=== PATIENT | female | born 1940 | race Caucasian/White ===

== ENCOUNTER → 2018-09-19 | Outpatient (CLI) | payer MEDICARE, BC ==
[~2018-09-19] MED LIST: ATRV10T; ESCI20TA2 PO; HCT25T; IBAN150T5; IRB150T; MTF500T PO; NFNEB10T PO; OMEG1CAP26 PO; RSG4T
--- NOTE | 2018-09-19 12:34 | Diagnostic Imaging Report ---
INDICATION: Postmenopausal screening for osteoporosis. COMPARISON: 04/13/2013. FINDINGS: AP Spine L1-L4: [BMD (g/cm2): 1.059] [T-Score: -1.2] [Z-Score: 0.0] [BMD Previous: 0.916] [BMD % Change: 15.6] LT Hip Neck: [BMD (g/cm2): 0.830] [T-Score: -1.5] [Z-Score: 0.2] LT Hip Total: [BMD (g/cm2):1.009] [T-Score:0.0] [Z-Score: 1.5] [BMD Previous: 1.001] [BMD % Change: N/A] RT Hip Neck: [BMD (g/cm2):0.919] [T-Score:-0.9] [Z-Score:0.9] RT Hip Total: [BMD (g/cm2):0.955] [T-score:-0.4] [Z-Score:1.1] [BMD Previous:0.962] [BMD % Change:N/A] *Indicates significant change from prior examination based on 95% confidence level. World Health Organization criteria for BMD interpretation classify patients as Normal (T-score at or above -1.0), Osteopenic (T-score between -1.0 and -2.5) or Osteoporotic (T-score at or below -2.5). LIMITATIONS AND MODIFICATION: None. FRACTURE RISK (FRAX SCORE): The ten year probability of (%): Major Osteoporotic Fracture: [N/A] Hip Fracture: [N/A] IMPRESSION: 1. Osteopenia (Low bone mass). 2. No significant change in bone mineral density since prior examination. 3. See below National Osteoporosis Foundation guidelines on when to potentially initiate pharmacologic therapy. Based on the National Osteoporosis Foundation Guidelines, pharmacologic treatment should be initiated in any of the following, unless clinical conditions suggest otherwise: * Any patient with prior fragility fracture of the hip or vertebrae. A spine fracture indicates 5X risk for subsequent spine fracture and 2X risk for subsequent hip fracture. * Osteoporosis (T-score <-2.5). * Postmenopausal women and men age 50 and older with low bone mass/osteopenia (T-score between -1.0 and -2.5) by DXA and 10-year major osteoporotic fracture greater than 20% or a 10-year probability of hip fracture greater than 3%. These fracture risks are supplied above in the FRAX score, if applicable. * Clinician judgment and/or patient preferences may indicate treatment for people with 10-year fracture probabilities above or below these levels. Dictated by: Dictated on workstation # [id number]
== END ==
LOC: RAD 10:39
PROVIDERS: ATTEND Internal Medicine
DX: Z13.820 Encounter for screening for osteoporosis (principal); M85.89 Other specified disorders of bone density and structure, multiple sites; Z78.0 Asymptomatic menopausal state
CPT/HCPCS: 77080

== ENCOUNTER 2019-01-29 19:58 | Outpatient (CLI) | payer MEDICARE, BC | END 2019-01-30 07:30 | disposition home or self-care (01) | LOC: SLEEP 19:58 | PROVIDERS: ATTEND Nurse Practitioner Family | DX: G47.10 Hypersomnia, unspecified (principal); I10 Essential (primary) hypertension | CPT/HCPCS: 95810 ==

== ENCOUNTER → 2019-08-08 | Outpatient (CLI) | payer MEDICARE, BC ==
--- NOTE | 2019-08-08 11:55 | Diagnostic Imaging Report ---
PROCEDURE: US Renal Bilateral. TECHNIQUE: Multiple real-time grayscale images were obtained over the kidneys in various projections bilaterally. INDICATION: Chronic kidney disease, stage IV. FINDINGS: The right kidney measures 10.4 x 5.0 x 4.8 cm, and the left kidney measures 11.2 x 4.6 x 6.4 cm. Cortical thickness and echogenicity are unremarkable. There are two small cysts in the right kidney cortex, largest 15 mm in size. There is a large calcific density in the lower pole of the left kidney measuring up to 3.5 cm. No hydronephrosis is identified. Bladder is unremarkable. Bilateral ureteral jets were visualized. IMPRESSION: Right renal cysts and large left renal calculus. No hydronephrosis is detected. Dictated by: Dictated on workstation # [id number]
== END ==
LOC: RAD 10:04
PROVIDERS: ATTEND Internal Medicine Nephrology
DX: I12.9 Hypertensive chronic kidney disease with stage 1 through stage 4 chronic kidney disease, or unspecified chronic kidney disease (principal); N18.4 Chronic kidney disease, stage 4 (severe); R60.0 Localized edema; I63.9 Cerebral infarction, unspecified; N28.1 Cyst of kidney, acquired; N20.0 Calculus of kidney
CPT/HCPCS: 76770

== ENCOUNTER 2020-10-07 10:13 | Emergency (ER) | payer MEDICARE, BC ==
[~2020-10-07] VITALS: Ht 165.1 cm; Wt 95.7 kg
--- NOTE | 2020-10-07 10:29 | ED General ---
General Stated Complaint: HIGH BP (200+/123) Source of Information: Patient Exam Limitations: No Limitations History of Present Illness Date Seen by Provider: Oct 07, 2020 Time Seen by Provider: 10:20 Initial Comments 80-year-old female presents with concern of elevated blood pressure by home blood pressure monitor this morning. Her drove her in after calling their primary care provider with this information and they were advised to come to the ER. She does complain of some weakness after eating breakfast this morning, denies chest pain cough or shortness of air. Denies swelling of extremities, recent illness, fever or chills, nausea vomiting or loss of appetite. States she did take her morning medications, but doesn't know what they were, says her knows her medications. Saw, PCP, Dr Steen yesterday and her blood pressure medication was increased (Diltiazem). Took increased dose this morning. Reviewed medications, only taking diltiazem for HTN. Used to take an ARB. Allergies and Home Medications Allergies Coded Allergies: Sulfa(Sulfonamide Antibiotics) (Unverified Allergy, Unknown, 03/26/09) Home Medications Chlorthalidone 25 Mg Tablet, 25 MG PO DAILY Prescribed by: ADRIANNA CHERRY on 10/07/20 1139 Escitalopram Oxalate 20 Mg Tablet, 1 EACH PO DAILY, (Reported) Metformin Hcl 500 Mg Tablet, 1 EACH PO BID, (Reported) Nebivolol Hcl 10 Mg Tablet, 1 EACH PO DAILY, (Reported) [place]-3/Dha/Epa/Fish Oil 1 Each Capsule, 1 EACH PO DAILY, (Reported) Patient Home Medication List Home Medication List Reviewed: Yes Review of Systems Review of Systems Constitutional: No chills, No dizziness, No fever, No malaise; weakness EENTM: no symptoms reported Respiratory: No cough, No short of breath Cardiovascular: No chest pain, No edema, No palpitations, No syncope, No vascular heart diseas Gastrointestinal: No abdominal pain, No diarrhea, No loss of appetite, No nausea, No vomiting Musculoskeletal: No back pain, No joint pain Skin: No change in color, No rash Psychiatric/Neurological: Denies Headache, Denies Numbness, Denies Seizure, Denies Tingling, Denies Tremors; Weakness Past Fjighir-Owaysj-Cddskl Hx Past Med/Social Hx: Reviewed Nursing Past Med/Soc Hx Patient Social History Alcohol Use: Denies Use Past Medical History Reproductive Disorders: No Physical Exam Vital Signs Vital Signs - First Documented 10/07/20 10:17 Temp 36.8 Pulse 84 Resp 20 B/P (MAP) 233/69 (123) Pulse Ox 96 O2 Delivery Room Air Capillary Refill : Height, Weight, BMI Height: '" Weight: lbs. oz. kg; BMI Method: General Appearance: No Apparent Distress, WD/WN Eyes: Bilateral Eye Normal Inspection, Bilateral Eye PERRL, Bilateral Eye EOMI HEENT: PERRL/EOMI, Normal ENT Inspection Neck: Normal Inspection, Non Tender, Supple Respiratory: Chest Non Tender, Lungs Clear, Normal Breath Sounds, No Accessory Muscle Use, No Respiratory Distress Cardiovascular: Regular Rate, Rhythm, No Edema, No JVD, Normal Peripheral Pulses Gastrointestinal: No Organomegaly, No Pulsatile Mass, Non Tender, Soft Back: Normal Inspection, No CVA Tenderness Extremity: Normal Capillary Refill, Non Tender, No Calf Tenderness Neurologic/Psychiatric: Alert, Oriented x3, No Motor/Sensory Deficits, Normal Mood/Affect Skin: Normal Color, Warm/Dry Progress/Results/Core Measures Suspected Sepsis SIRS Temperature: Pulse: Respiratory Rate: Laboratory Tests 10/07/20 10:30: White Blood Count 10.0 Blood Pressure / Mean: Laboratory Tests 10/07/20 10:30: Creatinine 1.49H, Platelet Count 246, Total Bilirubin 0.5 Results/Orders Lab Results Laboratory Tests Test 10/07/20 10:30 Range/Units White Blood Count 10.0 4.3-11.0 10^3/uL Red Blood Count 3.96 L 4.35-5.85 10^6/uL Hemoglobin 11.9 11.5-16.0 G/DL Hematocrit 37 35-52 % Mean Corpuscular Volume 92 80-99 FL Mean Corpuscular Hemoglobin 30 25-34 PG Mean Corpuscular Hemoglobin Concent 33 32-36 G/DL Red Cell Distribution Width 13.5 10.0-14.5 % Platelet Count 246 130-400 10^3/uL Mean Platelet Volume 10.3 7.4-10.4 FL Immature Granulocyte % (Auto) 1 % Neutrophils (%) (Auto) 78 H 42-75 % Lymphocytes (%) (Auto) 16 12-44 % Monocytes (%) (Auto) 5 0-12 % Eosinophils (%) (Auto) 0 0-10 % Basophils (%) (Auto) 1 0-10 % Neutrophils # (Auto) 7.7 1.8-7.8 X 10^3 Lymphocytes # (Auto) 1.6 1.0-4.0 X 10^3 Monocytes # (Auto) 0.5 0.0-1.0 X 10^3 Eosinophils # (Auto) 0.0 0.0-0.3 10^3/uL Basophils # (Auto) 0.1 0.0-0.1 10^3/uL Immature Granulocyte # (Auto) 0.1 0.0-0.1 10^3/uL Sodium Level 140 135-145 MMOL/L Potassium Level 4.2 3.6-5.0 MMOL/L Chloride Level 103 98-107 MMOL/L Carbon Dioxide Level 24 21-32 MMOL/L Anion Gap 13 5-14 MMOL/L Blood Urea Nitrogen 39 H 7-18 MG/DL Creatinine 1.49 H 0.60-1.30 MG/DL Estimat Glomerular Filtration Rate 34 BUN/Creatinine Ratio 26 Glucose Level 221 H 70-105 MG/DL Calcium Level 9.7 8.5-10.1 MG/DL Corrected Calcium 9.6 8.5-10.1 MG/DL Total Bilirubin 0.5 0.1-1.0 MG/DL Aspartate Amino Transf (AST/SGOT) 24 5-34 U/L Alanine Aminotransferase (ALT/SGPT) 18 0-55 U/L Alkaline Phosphatase 66 40-136 U/L Troponin I < 0.30 <0.30 NG/ML Total Protein 7.3 6.4-8.2 GM/DL Albumin 4.1 3.2-4.5 GM/DL My Orders Orders - JULIANNESTADRIANNA BLANTON DO Ed Iv/Invasive Line Start (10/07/20 10:24) Cbc With Automated Diff (10/07/20 10:24) Comprehensive Metabolic Panel (10/07/20 10:24) Troponin I Fs (10/07/20 10:24) Chest 1 View Ap/Pa Only (10/07/20 10:24) Ekg Tracing (10/07/20 10:24) Vital Signs/I&O 10/07/20 10:17 Temp 36.8 Pulse 84 Resp 20 B/P (MAP) 233/69 (123) Pulse Ox 96 O2 Delivery Room Air Capillary Refill : Progress Note : Progress Note 1130- Called Dr. Steen to discuss patient's presentation, labs, EKG and blood pressure. We agreed to start chlorthalidone 25 mg daily, starting today and he will see patient in the office in 1 week. Discussed this with patient's who is her primary caregiver he agrees and understands as well. Patient stable, no distress no significant change of her creatinine or other lab abnormality. Otherwise asymptomatic. ECG Initial ECG Impression Date: Oct 07, 2020 Initial ECG Impression Time: 10:35 Initial ECG Rate: 70 Initial ECG Rhythm: Normal Sinus Initial ECG Intervals: Normal Initial ECG Impression: Normal Initial ECG Comparisson: No Previous ECG Available Departure Impression Primary Impression: Uncontrolled hypertension Disposition: HOME, SELF-CARE Condition: Stable Departure-Patient Inst. Decision time for Depature: 11:38 Referrals: CYNDIE STEEN MD (PCP/Family) Primary Care Physician Patient Instructions: High Blood Pressure (DC) Add. Discharge Instructions: follow up with Dr Steen next week regarding your blood pressure Scripts Chlorthalidone (Chlorthalidone) 25 Mg Tablet 25 MG PO DAILY, #30 TAB Prov: ADRIANNA CHERRY DO 10/07/20 ADRIANNA CHERRY DO Oct 07, 2020 10:29
[2020-10-07 10:43] LABS: HEMATOCRIT 37 % (35-52); HEMOGLOBIN 11.9 G/DL (11.5-16.0); MEAN CORPUSCULAR HEMOGLOBIN 30 PG (25-34); MEAN CORPUSCULAR HGB CONC 33 G/DL (32-36); MEAN CORPUSCULAR VOLUME 92 FL (80-99); MEAN PLATELET VOLUME 10.3 FL (7.4-10.4); PLATELET COUNT 246 10^3/uL (130-400)
[2020-10-07 10:44] LABS: BASOPHILS # (AUTO) 0.1 10^3/uL (0.0-0.1); BASOPHILS % (AUTO) 1 % (0-10); EOSINOPHILS % (AUTO) 0 % (0-10); LYMPHOCYTES # (AUTO) 1.6 X 10^3 (1.0-4.0); LYMPHOCYTES % (AUTO) 16 % (12-44); MONOCYTES # (AUTO) 0.5 X 10^3 (0.0-1.0); MONOCYTES % (AUTO) 5 % (0-12); NEUTROPHILS # (AUTO) 7.7 X 10^3 (1.8-7.8); NEUTROPHILS % (AUTO) 78 % (42-75)
--- NOTE | 2020-10-07 10:54 | Diagnostic Imaging Report ---
INDICATION: Uncontrolled hypertension. TECHNIQUE: Single view chest at 10:30 AM. CORRELATION STUDY: 11/14/2012. FINDINGS: Heart size is enlarged. Calcification of the aortic arch. Pulmonary vasculature overall within normal limits. Likely chronic appearing changes about the lung parenchyma. Scattered calcified granulomas. No infiltrate. IMPRESSION: Negative for acute abnormality of the chest. Dictated by: Dictated on workstation # [id number]
[2020-10-07 11:25] LABS: ALANINE AMINOTRANSFERASE 18 U/L (0-55); ALKALINE PHOSPHATASE 66 U/L (40-136); BILIRUBIN,TOTAL 0.5 MG/DL (0.1-1.0); BUN/CREATININE RATIO 26; CALCIUM 9.7 MG/DL (8.5-10.1); CARBON DIOXIDE 24 MMOL/L (21-32); CHLORIDE 103 MMOL/L (98-107); CREATININE SERUM 1.49 MG/DL (0.60-1.30); GFR ESTIMATED 34; GLUCOSE 221 MG/DL (70-105); POTASSIUM 4.2 MMOL/L (3.6-5.0); SODIUM 140 MMOL/L (135-145); TOTAL PROTEIN 7.3 GM/DL (6.4-8.2)
[2020-10-07 11:26] LABS: ALBUMIN 4.1 GM/DL (3.2-4.5)
[2020-10-07] MEDS ORDERED: CHLO25TA22 PO (11:39)
[2020-10-07 11:43] VITALS: BP 213/61
[2020-10-07] MEDS ORDERED: CLOP75TA28 PO (12:46)
[2020-10-07] MEDS ORDERED: MULT-1029 PO (12:46)
[2020-10-07] MEDS ORDERED: ESCI-2 PO (12:46)
[2020-10-07] MEDS ORDERED: ATOR40TA70 PO (12:46)
[2020-10-07] MEDS ORDERED: PRED5TAB PO (12:46)
[2020-10-07] MEDS ORDERED: RIVA1PAT12 TD (12:46)
[2020-10-07] MEDS ORDERED: DILT180C48 PO (12:46)
== END 2020-10-07 11:43 | disposition home or self-care (01) ==
LOC: EDUNIT# 10:13 → ER FS 10:15
DX: I10 Essential (primary) hypertension (principal); Z79.84 Long term (current) use of oral hypoglycemic drugs; Z88.2 Allergy status to sulfonamides; Z79.899 Other long term (current) drug therapy
CPT/HCPCS: 36415; 71045; 80053; 84484; 85025; 93005

== ENCOUNTER 2021-07-18 18:39 | Emergency (ER) | payer MEDICARE, BC ==
[~2021-07-18] VITALS: Ht 165 cm; Wt 93.0 kg
[~2021-07-18 18:39] MED LIST changes: +ATOR40TA70 PO; +CHLO25TA22 PO; +CLOP75TA28 PO; +DILT180C48 PO; +ESCI-2 PO; +MULT-1029 PO; +PRED5TAB PO; +RIVA1PAT12 TD
[2021-07-18] MEDS ORDERED: NS IV 1000 ML 1,000 ML IV STA (18:55)
[2021-07-18 19:00] LABS: WHITE BLOOD COUNT 9.2 10^3/uL (4.3-11.0)
[2021-07-18 19:02] LABS: BASOPHILS % (AUTO) 0 % (0-10); EOSINOPHILS % (AUTO) 0 % (0-10); HEMATOCRIT 34 % (35-52); LYMPHOCYTES # (AUTO) 1.3 X 10^3 (1.0-4.0); LYMPHOCYTES % (AUTO) 14 % (12-44); MEAN CORPUSCULAR HEMOGLOBIN 30 pg (25-34); MEAN CORPUSCULAR HGB CONC 33 g/dL (32-36); MEAN CORPUSCULAR VOLUME 92 fL (80-99); MONOCYTES # (AUTO) 0.7 X 10^3 (0.0-1.0); MONOCYTES % (AUTO) 8 % (0-12); NEUTROPHILS # (AUTO) 7.2 X 10^3 (1.8-7.8); NEUTROPHILS % (AUTO) 78 % (42-75); PLATELET COUNT 258 10^3/uL (130-400)
--- NOTE | 2021-07-18 19:03 | ED General ---
General Chief Complaint: General Problems/Pain Stated Complaint: ANXIETY Source of Information: Patient, Family History of Present Illness Date Seen by Provider: Jul 18, 2021 Time Seen by Provider: 18:41 Initial Comments 81-year-old female brought in by family due to concerns that she has been more lethargic this week. She has not been wanting to eat or drink as much. She has a history of prior stroke in 2016 and has panic attacks since then. She takes alprazolam when she has panic attacks but states she is not anxious or nervous right now. The family member with her stated that they gave her a dose of the medicine approximately an hour before arrival. Patient denies any complaints and just states that she feels tired. She has no nausea, vomiting, headache, dysuria, abdominal pain, chest pain, headache, numbness or weakness in her arms or legs. She states she feels a little unsteady when she is walking. However this is after she had been giving the dose of Xanax. Timing/Duration: 1 Week Severity: Moderate Modifying Factors: worse with Medication (more fatigued and unsteady walking after taking Alprazolam) Associated Systoms: No Chest Pain, No Cough, No Diaphoresis, No Fever/Chills, No Headaches; Loss of Appetite (not eating as much as usual); No Malaise, No Nausea/Vomiting, No Rash, No Seizure, No Shortness of Air, No Syncope; Weakness (generalized) Allergies and Home Medications Allergies Coded Allergies: Sulfa(Sulfonamide Antibiotics) (Unverified Allergy, Unknown, 03/26/09) Patient Home Medication List Home Medication List Reviewed: Yes Atorvastatin Calcium (Atorvastatin Calcium) 40 Mg Tablet, 40 MG PO HS, (Reported) Entered as Reported by: NGOC WEST on 10/07/20 1246 Chlorthalidone (Chlorthalidone) 25 Mg Tablet, 25 MG PO DAILY Prescribed by: ADRIANNA CHERRY on 10/07/20 1139 Clopidogrel Bisulfate (Clopidogrel) 75 Mg Tablet, 75 MG PO DAILY, (Reported) Entered as Reported by: NGOC WEST on 10/07/20 1246 Diltiazem HCl (Dilt-Xr) 180 Mg Cap.er.deg, 180 MG PO DAILY, (Reported) Entered as Reported by: NGOC WEST on 10/07/20 1246 Escitalopram Oxalate (Escitalopram Oxalate) 10 Mg Tablet, 10 MG PO HS, (Reported) Entered as Reported by: NGOC WEST on 10/07/20 124 Multivit-Min/FA/Lycopene/Lut (Centrum Silver Tablet) 1 Each Tablet, 1 EACH PO DAILY, (Reported) Entered as Reported by: NGOC WEST on 10/07/20 124 Nitrofurantoin Monohyd/M-Cryst (Macrobid 100 mg Capsule) 100 Mg Capsule, 1 TAB PO BID Prescribed by: XUAN MICHEL on 07/18/211956 [place]-3/Dha/Epa/Fish Oil (Fish Oil 1,000 Mg Softgel) 1 Each Capsule, 1 EACH PO BID, (Reported) Entered as Reported by: LYNDSAY STANLEY on 11/06/12 153 Prednisone (Prednisone) 5 Mg Tablet, 5 MG PO DAILY, (Reported) Entered as Reported by: NGOC WEST on 10/07/20 124 Rivastigmine (Rivastigmine) 1 Each Patch.td24, 1 PATCH TD DAILY, (Reported) Entered as Reported by: NGOC WEST on 10/07/20 124 Review of Systems Review of Systems Constitutional: No chills, No diaphoresis, No fever EENTM: no symptoms reported Respiratory: no symptoms reported; No cough, No short of breath Cardiovascular: No chest pain, No palpitations Gastrointestinal: No abdominal pain, No nausea, No vomiting Genitourinary: No dysuria, No frequency Musculoskeletal: No back pain, No neck pain Skin: No rash Psychiatric/Neurological: Anxiety (reported anxiety and panic attacks); Denies Headache, Denies Numbness, Denies Paresthesia; Weakness (generalized) Hematologic/Lymphatic: Denies Blood Clots Past Sbrsvsu-Dlgyow-Udltof Hx Patient Social History Tobacco Use?: No Use of E-Cig and/or Vaping dev: No Substance use?: No Alcohol Use?: No Seasonal Allergies Seasonal Allergies: No Past Medical History Surgery/Hospitalization HX: Hx of strokes, Panic Attacks, Hypertension Surgeries: Yes (BREAST BIOPSY, 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 19) Hysterectomy Respiratory: Yes (Hypersomnia, no ANISH on last sleep study) Cardiac: Yes (CKD severe stage 4) High Cholesterol, Hypertension, Valvular Heart Disease Neurological: Yes (Stroke deficits: vision impaired and memory) Parkinson's Disease, Stroke Reproductive Disorders: No Genitourinary: Yes (CKD severe Stage 4) Kidney Stones, Renal Failure Gastrointestinal: No Musculoskeletal: No Endocrine: Yes Diabetes, Non-Insulin dep HEENT: Yes (Repaired cataracts per old records) Cataract Psychosocial: Yes ("Panic Attacks") Anxiety Integumentary: No Blood Disorders: No Physical Exam Vital Signs Vital Signs - First Documented 07/18/21 18:55 Temp 36.7 Pulse 77 Resp 20 B/P (MAP) 166/66 (99) Pulse Ox 98 O2 Delivery Room Air Capillary Refill : Height, Weight, BMI Height: '" Weight: lbs. oz. kg; 35.00 BMI Method: General Appearance: No Apparent Distress, WD/WN Eyes: Bilateral Eye PERRL, Bilateral Eye EOMI HEENT: Pharynx Normal Neck: Full Range of Motion, Normal Inspection, Non Tender, Supple Respiratory: Chest Non Tender, Lungs Clear, Normal Breath Sounds, No Accessory Muscle Use, No Respiratory Distress Cardiovascular: Regular Rate, Rhythm, Normal Peripheral Pulses Gastrointestinal: Normal Bowel Sounds, No Pulsatile Mass, Non Tender, Soft Rectal: Deferred Extremity: Normal Capillary Refill, Normal Inspection, No Pedal Edema Neurologic/Psychiatric: Alert, Oriented x3, No Motor/Sensory Deficits, print producer II- XII Norm as Tested; No Facial Droop, No Motor Weakness; Other (equal malt loader strength) Skin: Normal Color, Warm/Dry Progress/Results/Core Measures Suspected Sepsis SIRS Temperature: Pulse: Respiratory Rate: Laboratory Tests 07/18/21 18:55: White Blood Count 9.2 Blood Pressure / Mean: Laboratory Tests 07/18/21 18:55: Creatinine 2.01H, INR Comment 0.9, Platelet Count 258, Total Bilirubin 0.2 Results/Orders Lab Results Laboratory Tests Test 07/18/21 18:54 07/18/21 18:55 07/18/21 19:30 Range/Units Glucometer 164 H 70-110 MG/DL White Blood Count 9.2 4.3-11.0 10^3/uL Red Blood Count 3.66 L 3.80-5.11 10^6/uL Hemoglobin 11.0 L 11.5-16.0 g/dL Hematocrit 34 L 35-52 % Mean Corpuscular Volume 92 80-99 fL Mean Corpuscular Hemoglobin 30 25-34 pg Mean Corpuscular Hemoglobin Concent 33 32-36 g/dL Red Cell Distribution Width 13.8 10.0-14.5 % Platelet Count 258 130-400 10^3/uL Mean Platelet Volume 10.0 9.0-12.2 fL Immature Granulocyte % (Auto) 0 % Neutrophils (%) (Auto) 78 H 42-75 % Lymphocytes (%) (Auto) 14 12-44 % Monocytes (%) (Auto) 8 0-12 % Eosinophils (%) (Auto) 0 0-10 % Basophils (%) (Auto) 0 0-10 % Neutrophils # (Auto) 7.2 1.8-7.8 X 10^3 Lymphocytes # (Auto) 1.3 1.0-4.0 X 10^3 Monocytes # (Auto) 0.7 0.0-1.0 X 10^3 Eosinophils # (Auto) 0.0 0.0-0.3 10^3/uL Basophils # (Auto) 0.0 0.0-0.1 10^3/uL Immature Granulocyte # (Auto) 0.0 0.0-0.1 10^3/uL Prothrombin Time 12.6 12.2-14.7 SEC INR Comment 0.9 0.8-1.4 Activated Partial Thromboplast Time 24 24-35 SEC Sodium Level 138 135-145 MMOL/L Potassium Level 5.0 3.6-5.0 MMOL/L Chloride Level 102 98-107 MMOL/L Carbon Dioxide Level 23 21-32 MMOL/L Anion Gap 13 5-14 MMOL/L Blood Urea Nitrogen 67 H 7-18 MG/DL Creatinine 2.01 H 0.60-1.30 MG/DL Estimat Glomerular Filtration Rate 24 BUN/Creatinine Ratio 33 Glucose Level 173 H 70-105 MG/DL Calcium Level 9.9 8.5-10.1 MG/DL Corrected Calcium 10.0 8.5-10.1 MG/DL Magnesium Level 1.7 1.6-2.4 MG/DL Total Bilirubin 0.2 0.1-1.0 MG/DL Aspartate Amino Transf (AST/SGOT) 18 5-34 U/L Alanine Aminotransferase (ALT/SGPT) 15 0-55 U/L Alkaline Phosphatase 81 40-136 U/L Troponin I < 0.30 <0.30 NG/ML Pro-B-Type Natriuretic Peptide 357.9 H <75.0 PG/ML Total Protein 7.5 6.4-8.2 GM/DL Albumin 3.9 3.2-4.5 GM/DL Lipase 52 8-78 U/L Urine Color YELLOW Urine Clarity SLIGHTLY CLOUDY Urine pH 5.5 5-9 Urine Specific [place] 1.020 1.016-1.022 Urine Protein TRACE H NEGATIVE Urine Glucose (UA) NEGATIVE NEGATIVE Urine Ketones NEGATIVE NEGATIVE Urine Nitrite NEGATIVE NEGATIVE Urine Bilirubin NEGATIVE NEGATIVE Urine Urobilinogen 0.2 < = 1.0 MG/DL Urine Leukocyte Esterase 2+ H NEGATIVE Urine RBC (Auto) TRACE-I H NEGATIVE Urine RBC NONE /HPF Urine WBC 25-50 H /HPF Urine Squamous Epithelial Cells 2-5 /HPF Urine Crystals NONE /LPF Urine Bacteria FEW H /HPF Urine Casts NONE /LPF Urine Mucus MODERATE H /LPF Urine Culture Indicated YES My Orders Orders - XUAN MICHEL MD Cbc With Automated Diff (07/18/21 18:53) Magnesium (07/18/21 18:53) Ekg Tracing (07/18/21 18:53) Comprehensive Metabolic Panel (07/18/21 18:53) Protime With Inr (07/18/21 18:53) Partial Thromboplastin Time (07/18/21 18:53) Monitor-Rhythm Ecg Trace Only (07/18/21 18:53) Ed Iv/Invasive Line Start (07/18/21 18:53) Lipase (07/18/21 18:53) Troponin I Fs (07/18/21 18:53) Probnp Fs (07/18/21 18:53) Ua Culture If Indicated (07/18/21 18:53) Accucheck Stat ONCE (07/18/21 18:53) Ct Head Wo (07/18/21 18:53) Ns Iv 1000 Ml (Sodium Chloride 0.9%) (07/18/21 18:55) Urine Culture (07/18/21 19:30) Rx-Nitrofurantoin [place] (Rx-Macrobid) (07/18/21 21:00) Ceftriaxone (Rocephin) (07/18/21 19:57) Vital Signs/I&O 07/18/21 07/18/21 18:55 20:20 Temp 36.7 Pulse 77 70 Resp 20 15 B/P (MAP) 166/66 (99) 170/71 Pulse Ox 98 97 O2 Delivery Room Air Room Air Capillary Refill : Progress Note #1: Progress Note Since the patient has no complaints and the family member is vague about what they were concerned about for the patient will obtain general testing to look for electrolyte imbalance, acute bleeding or stroke, UTI, dehydration, myocardial infarction. Give IVF for hydration. Accucheck came back as 162. Progress Note #2: Progress Note Labs show chronic stable anemia with hemoglobin of 11.0. Her chemistry panel does not show acute electrolyte imbalance or hepatic abnormality. Her renal function is slightly elevated with an elevated BUN of 67 and creatinine of 2.01. This would go along with some dehydration as they are slightly higher than the values from September 2020 when Cr was 1.49. Her CT scan of the head did not demonstrate any acute for signs of bleeding or stroke. She was able to provide a urine specimen so awaiting that test. Progress Note #3: Progress Note Urine does show signs of infection so we will treat with antibiotics for that. When reviewing results with the he did state that she has not taken her nighttime dose of meds yet which would also help explain her blood pressure being elevated. Stressed importance of drinking more fluids and staying better hydrated. She was already having improved symptoms of dizziness and difficulty walking with getting hydration here in the ED. Give a dose of Rocephin to start treatment for the urine infection and sent with a take-home pack of Macrobid. Prescription was sent to [facility] to be able to burr picker on Tuesday morning since currently the [facility] pharmacy in [place] is not available on Sundays. Counseled on follow-up and return precautions. ECG Initial ECG Impression Date: Jul 18, 2021 Initial ECG Impression Time: 18:56 Initial ECG Rate: 63 Initial ECG Rhythm: Normal Sinus Initial ECG Comparisson: No Previous ECG Available Comment Normal sinus rhythm with a heart rate of 63 bpm. TX interval of [address] elevation. Abnormal R wave progression with early transition. QT interval 423 ms with a QTC 434 ms. No prior tracing available for comparison. Diagnostic Imaging Diagonstic Imaging: CT Plain Films/CT/US/NM/MRI: head Comments [facility] [place], [place] NAME: [facility] REC#: [id number] PT STATUS: REG ER : 10/04/1995 PHYSICIAN: XUAN MICHEL MD ADMIT DATE: 07/18/21/ER FS Draft Date of Exam:07/18/21 CT HEAD/SINUSES WO PROCEDURE: CT head without contrast and CT sinuses with contrast. TECHNIQUE: Routine noncontrast CT images were obtained through the head and sinuses. Coronal reformats of the sinuses were also performed and reviewed. Auto Exposure Controls were utilized during the CT exam to meet ALARA standards for radiation dose reduction. DATE: July 18, 2021. INDICATION: 25-year-old female, headache, dizziness, sinus pressure. COMPARISON: None. FINDINGS: The bilateral frontal sinuses are well-aerated. There is nonspecific opacification in the left posterior ethmoidal air cell. There is mucosal thickening of the left sphenoid sinus. The right sphenoid sinus and right ethmoidal air cells are well aerated. Maxillary sinuses are well aerated. There is no air-fluid level in the paranasal sinuses or bubbly areas of internal lucency. The bony nasal septum is deviated to the right of midline. Mastoid air cells and middle ears are well-aerated, bilaterally. There is pneumatization of the petrous apices. The ventricles and additional CSF spaces are normal in size and configuration for patient age. There is no identified abnormal extra-axial fluid collection. There is no evidence of acute intracranial hemorrhage. There is no mass effect or midline shift. IMPRESSION: 1. Nonspecific opacification in the left posterior ethmoid cell with mucosal thickening in the left sphenoid sinus. No findings to specifically suggest acute sinusitis although correlation clinically is recommended. 2. No identified acute intracranial abnormality. Dictated on workstation # [id number] Dict: 07/18/211908 Trans: 07/18/211924 [facility] [id number] Interpreted by: QUINTON HU MD Electronically signed by: Reviewed: Reviewed by Me Departure Impression Primary Impression: Cystitis without hematuria Additional Impressions: Dehydration Fatigue Qualified Codes: R53.82 - Chronic fatigue, unspecified Disposition: 01 HOME, SELF-CARE Condition: Stable Departure-Patient Inst. Decision time for Depature: 20:12 Referrals: CYNDIE QUIGLEY MD (PCP/Family) Primary Care Physician Patient Instructions: Fatigue ED, Dehydration, Adult ED, Urinary Tract Infection, Adult ED Add. Discharge Instructions: Your CT scan of the head did not show any signs of new stroke or bleeding. Your urine showed signs of a UTI or bladder infection. Drinking more water will help to flush out the infection. Take the full course of antibiotics to treat for infection. Your labs show that you do need to drink more water and stay better hydrated. Your glucose or sugar level was slightly elevated at 164 so you may want to check with Dr. Quigley to see if he wants to do anything different with your sugars. Your blood pressure was slightly elevated as well so Dr. Quigley may adjust your medicines to get better blood pressure control but this may improve as your urine infection is treated. If you continue to have problems over the weekend then certainly check with Dr. Quigley on Tuesday. All discharge instructions reviewed with patient and/or family. Voiced understanding. Scripts Nitrofurantoin Monohyd/M-Cryst (Macrobid 100 mg Capsule) 100 Mg Capsule 1 TAB PO BID for UTI for 7 Days, #14 CAP 0 Refills Prov: XUAN MICHEL MD 07/18/21 XUAN MICHEL MD Jul 18, 2021 19:03
[2021-07-18 19:14] LABS: ALBUMIN 3.9 GM/DL (3.2-4.5); BILIRUBIN,TOTAL 0.2 MG/DL (0.1-1.0); CALCIUM 9.9 MG/DL (8.5-10.1); CREATININE SERUM 2.01 MG/DL (0.60-1.30); MAGNESIUM 1.7 MG/DL (1.6-2.4); TOTAL PROTEIN 7.5 GM/DL (6.4-8.2)
[2021-07-18 19:22] LABS: INR 0.9 (0.8-1.4); PROTHROMBIN TIME PATIENT 12.6 SEC (12.2-14.7)
--- NOTE | 2021-07-18 19:36 | Diagnostic Imaging Report ---
PROCEDURE: CT head without contrast. TECHNIQUE: Multiple contiguous axial images were obtained through the brain without the use of intravenous contrast. Auto Exposure Controls were utilized during the CT exam to meet ALARA standards for radiation dose reduction. DATE: July 18, 2021. COMPARISON: None. INDICATION: 81-year-old female, fatigue and weakness. FINDINGS: There are findings of encephalomalacia in the right occipital lobe. There is fat attenuation along the falx which may reflect a small lipoma or dermoid. The ventricles and cerebral spinal fluid spaces are of normal size and configuration for the patient's age. There is no mass effect or midline shift. There is no acute intracranial hemorrhage. There is no abnormal extra-axial fluid collection. The visualized portions of the paranasal sinuses, mastoid air cells and middle ears are well aerated. IMPRESSION: 1. No identified acute intracranial abnormality. 2. Small foci of fat attenuation along the falx which may relate to small lipoma or dermoid. 3. Findings of encephalomalacia in the right occipital lobe. Dictated by: Dictated on workstation # [id number]
[2021-07-18 19:48] LABS: BACTERIA,URINE FEW /HPF; BILIRUBIN,URINE NEGATIVE (NEGATIVE); CLARITY,URINE SLIGHTLY CLOUDY; COLOR,URINE YELLOW; GLUCOSE, URINE (UA) NEGATIVE (NEGATIVE); KETONES,URINE NEGATIVE (NEGATIVE); LEUKOCYTE ESTERASE ,URINE 2+ (NEGATIVE); NITRITE,URINE NEGATIVE (NEGATIVE); PH,URINE 5.5 (5-9); PROTEIN,URINE TRACE (NEGATIVE); WBC,URINE 25-50 /HPF
[2021-07-18] MEDS ORDERED: cefTRIAXone 1,000 MG in WATER (STERILE) FOR INJECTION 5 ML IV STA (19:57)
[2021-07-18] MEDS ORDERED: NITR-65 PO (19:57)
[2021-07-18 20:20] VITALS: BP 170/71
[2021-07-18] MEDS ORDERED: RX-NITROFURANTOIN 100 MG (MACROBID) CAP PPK#2 PO SCH (21:00)
== END 2021-07-18 20:20 | disposition home or self-care (01) ==
LOC: EDUNIT# 18:39 → ER FS 18:40
DX: N30.90 Cystitis, unspecified without hematuria (principal); E86.0 Dehydration; I12.9 Hypertensive chronic kidney disease with stage 1 through stage 4 chronic kidney disease, or unspecified chronic kidney disease; N18.4 Chronic kidney disease, stage 4 (severe); E11.22 Type 2 diabetes mellitus with diabetic chronic kidney disease; F41.0 Panic disorder [episodic paroxysmal anxiety]; E78.00 Pure hypercholesterolemia, unspecified; G20 Parkinson's disease; Z86.73 Personal history of transient ischemic attack (TIA), and cerebral infarction without residual deficits; Z90.710 Acquired absence of both cervix and uterus; Z79.02 Long term (current) use of antithrombotics/antiplatelets; Z79.899 Other long term (current) drug therapy
CPT/HCPCS: 36415; 70450; 80053; 81000; 82947; 83690; 83735; 83880; 84484; 85025; 85610; 85730; 87077; 87088; 87184; 87186; 93005; 93041; 96374

== ENCOUNTER 2021-08-11 05:49 | Emergency (ER) | payer MEDICARE, BC ==
[~2021-08-11 05:49] MED LIST changes: +NITR-65 PO
[2021-08-11 05:52] VITALS: BP 146/70
--- NOTE | 2021-08-11 06:14 | ED Fall/Injury ---
General Chief Complaint: Trauma-Non Activation Stated Complaint: STROKE;FALL Source: patient, family, EMS Exam Limitations: no limitations (HARVEY CARCAMO MD) History of Present Illness Date Seen by Provider: Aug 11, 2021 Time Seen by Provider: 05:52 Initial Comments 81-year-old female with past medical history of stroke with residual visual field deficits, CKD, panic attacks (takes intermittent Xanax), hypertension, hyperlipidemia coming in via EMS from home after a fall. Went to bed around 8 PM, heard her yelling in the bathroom at 4 AM. When he went in she was on the ground after she had fallen. He says she was more confused at this time. He says lately she has been generally more weak and more tired which has been ongoing for weeks. She started Adderall a couple weeks ago because they are concerned she could have narcolepsy. Denying any focal weakness or numbness. Vision changes at baseline. EMS reports glucose was 219. She is denying any real pain anywhere at this time, but her says she was complaining of left-sided pain mostly in her upper abdomen/lower chest after the fall. Otherwise denying any cough, shortness of breath, fever, vomiting, diarrhea, focal weakness, numbness, dysuria, or any other concerns. I reviewed her chart when she came in June, and she came for general weakness and just feeling off. Diagnosed with a UTI at that time which grew out Klebsiella sensitive to Macrobid and she was placed on Macrobid after a dose of ceftriaxone. (HARVEY CARCAMO MD) Allergies and Home Medications Allergies Coded Allergies: Sulfa(Sulfonamide Antibiotics) (Unverified Allergy, Unknown, 03/26/09) Patient Home Medication List Home Medication List Reviewed: Yes (HARVEY CARCAMO MD) Atorvastatin Calcium (Atorvastatin Calcium) 40 Mg Tablet, 40 MG PO HS, (Reported) Entered as Reported by: NGOC WEST on 10/07/20 1246 Chlorthalidone (Chlorthalidone) 25 Mg Tablet, 25 MG PO DAILY Prescribed by: ADRIANNA CHERRY on 10/07/20 1139 Clopidogrel Bisulfate (Clopidogrel) 75 Mg Tablet, 75 MG PO DAILY, (Reported) Entered as Reported by: NGOC WEST on 10/07/20 1246 Diltiazem HCl (Dilt-Xr) 180 Mg Cap.er.deg, 180 MG PO DAILY, (Reported) Entered as Reported by: NGOC WEST on 10/07/20 124 Escitalopram Oxalate (Escitalopram Oxalate) 10 Mg Tablet, 10 MG PO HS, (Reported) Entered as Reported by: NGOC WEST on 10/07/20 1246 Multivit-Min/FA/Lycopene/Lut (Centrum Silver Tablet) 1 Each Tablet, 1 EACH PO DAILY, (Reported) Entered as Reported by: NGOC WEST on 10/07/20 124 Nitrofurantoin Monohyd/M-Cryst (Macrobid 100 mg Capsule) 100 Mg Capsule, 1 TAB PO BID Prescribed by: XUAN MICHEL on 07/18/211956 Dec[place]d-3/Dha/Epa/Fish Oil (Fish Oil 1,000 Mg Softgel) 1 Each Capsule, 1 EACH PO BID, (Reported) Entered as Reported by: LYNDSAY STANLEY on 11/06/12 153 Prednisone (Prednisone) 5 Mg Tablet, 5 MG PO DAILY, (Reported) Entered as Reported by: NGOC WEST on 10/07/20 124 Rivastigmine (Rivastigmine) 1 Each Patch.td24, 1 PATCH TD DAILY, (Reported) Entered as Reported by: NGOC WEST on 10/07/20 1246 Review of Systems Review of Systems Constitutional: No chills, No fever Eyes: Denies Blurred Vision Ears, Nose, Mouth, Throat: no symptoms reported Respiratory: No cough, No short of breath Cardiovascular: No chest pain Gastrointestinal: No abdominal pain, No diarrhea, No nausea, No vomiting Genitourinary: no symptoms reported Musculoskeletal: joint pain Skin: no symptoms reported Psychiatric/Neurological: No Symptoms Reported (HARVEY CARCAMO MD) All Other Systems Reviewed Negative Unless Noted: Yes (HARVEY CARCAMO MD) Past Jeyvtee-Dylzgu-Bsfapv Hx Patient Social History Tobacco Use?: No Use of E-Cig and/or Vaping dev: No Substance use?: No Alcohol Use?: No Pt feels they are or have been: No (HARVEY CARCAMO MD) Immunizations Up To Date Third COVID19 Vaccination Date: Moderna 07/02/21 (HARVEY CARCAMO MD) Seasonal Allergies Seasonal Allergies: No (HARVEY CARCAMO MD) Past Medical History Surgery/Hospitalization HX: Hx of strokes, Panic Attacks, Hypertension Surgeries: Yes (BREAST BIOPSY, 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 19) Hysterectomy Respiratory: Yes (Hypersomnia, no ANISH on last sleep study) Cardiac: Yes (CKD severe stage 4) High Cholesterol, Hypertension, Valvular Heart Disease Neurological: Yes (Stroke deficits: vision impaired and memory) Parkinson's Disease, Stroke Reproductive Disorders: No Genitourinary: Yes (CKD severe Stage 4) Kidney Stones, Renal Failure Gastrointestinal: No Musculoskeletal: No Endocrine: Yes Diabetes, Non-Insulin dep HEENT: Yes (Repaired cataracts per old records) Cataract Psychosocial: Yes ("Panic Attacks") Anxiety Integumentary: No Blood Disorders: No (HARVEY CARCAMO MD) Physical Exam Vital Signs Vital Signs - First Documented 08/11/21 05:52 Temp 36.6 Pulse 79 Resp 18 B/P (MAP) 146/70 (95) Pulse Ox 97 O2 Delivery Room Air (HARRINGTON,NEW L DO) Vital Signs Capillary Refill : (HARVEY CARCAMO MD) Height, Weight, BMI Height: '" Weight: lbs. oz. kg; 34.00 BMI Method: General Appearance: WD/WN, no apparent distress HEENT: PERRL/EOMI, normal ENT inspection, pharynx normal, other (tongue is dry) Neck: non-tender, full range of motion, supple, normal inspection Cardiovascular: regular rate, rhythm, no edema, no murmur Respiratory: chest non-tender, lungs clear, normal breath sounds, no respiratory distress, no accessory muscle use Gastrointestinal: normal bowel sounds, non tender, soft; No distended, No guarding, No rebound Back: normal inspection, no CVA tenderness, no vertebral tenderness Extremities: normal range of motion, non-tender, normal inspection, no pedal edema, no calf tenderness, normal capillary refill, other (Bruising to the bilateral knees of unsure age) Neurologic/Psychiatric: communications writer II-XII nml as tested, no motor/sensory deficits, alert, normal mood/affect, oriented x 3 Skin: normal color, warm/dry Lymphatic: no adenopathy (HARVEY CARCAMO MD) [place] Coma Score Best Eye Response: (4) Open Spontaneously Best Verbal Response: (4) Confused Conversation Best Motor Response: (6) Obeys Commands (HARVEY CARCAMO MD) Progress/Results/Core Measures Results/Orders Lab Results Laboratory Tests Test 08/11/21 05:57 08/11/21 06:16 08/11/21 06:18 Range/Units White Blood Count 13.5 H 4.3-11.0 10^3/uL Red Blood Count 3.17 L 3.80-5.11 10^6/uL Hemoglobin 9.4 L 11.5-16.0 g/dL Hematocrit 30 L 35-52 % Mean Corpuscular Volume 93 80-99 fL Mean Corpuscular Hemoglobin 30 25-34 pg Mean Corpuscular Hemoglobin Concent 32 32-36 g/dL Red Cell Distribution Width 14.0 10.0-14.5 % Platelet Count 258 130-400 10^3/uL Mean Platelet Volume 10.5 9.0-12.2 fL Immature Granulocyte % (Auto) 1 % Neutrophils (%) (Auto) 73 42-75 % Lymphocytes (%) (Auto) 17 12-44 % Monocytes (%) (Auto) 9 0-12 % Eosinophils (%) (Auto) 0 0-10 % Basophils (%) (Auto) 0 0-10 % Neutrophils # (Auto) 9.8 H 1.8-7.8 X 10^3 Lymphocytes # (Auto) 2.4 1.0-4.0 X 10^3 Monocytes # (Auto) 1.2 H 0.0-1.0 X 10^3 Eosinophils # (Auto) 0.0 0.0-0.3 10^3/uL Basophils # (Auto) 0.0 0.0-0.1 10^3/uL Immature Granulocyte # (Auto) 0.1 0.0-0.1 10^3/uL Prothrombin Time 13.4 12.2-14.7 SEC INR Comment 1.0 0.8-1.4 Activated Partial Thromboplast Time 24 24-35 SEC Sodium Level 140 135-145 MMOL/L Potassium Level 4.6 3.6-5.0 MMOL/L Chloride Level 102 98-107 MMOL/L Carbon Dioxide Level 21 21-32 MMOL/L Anion Gap 17 H 5-14 MMOL/L Blood Urea Nitrogen 88 H 7-18 MG/DL Creatinine 2.38 H 0.60-1.30 MG/DL Estimat Glomerular Filtration Rate 20 BUN/Creatinine Ratio 37 Glucose Level 228 H 70-105 MG/DL Calcium Level 9.6 8.5-10.1 MG/DL Corrected Calcium 10.0 8.5-10.1 MG/DL Total Bilirubin 0.3 0.1-1.0 MG/DL Aspartate Amino Transf (AST/SGOT) 24 5-34 U/L Alanine Aminotransferase (ALT/SGPT) 16 0-55 U/L Alkaline Phosphatase 82 40-136 U/L Troponin I < 0.30 <0.30 NG/ML Total Protein 6.8 6.4-8.2 GM/DL Albumin 3.5 3.2-4.5 GM/DL Glucometer 195 H 70-110 MG/DL Urine Color YELLOW Urine Clarity TURBID Urine pH 5.5 5-9 Urine Specific [place] 1.020 1.016-1.022 Urine Protein 1+ H NEGATIVE Urine Glucose (UA) NEGATIVE NEGATIVE Urine Ketones NEGATIVE NEGATIVE Urine Nitrite NEGATIVE NEGATIVE Urine Bilirubin NEGATIVE NEGATIVE Urine Urobilinogen 0.2 < = 1.0 MG/DL Urine Leukocyte Esterase 2+ H NEGATIVE Urine RBC (Auto) TRACE-I H NEGATIVE Urine RBC 0-2 /HPF Urine WBC TNTC H /HPF Urine Squamous Epithelial Cells 2-5 /HPF Urine Crystals NONE /LPF Urine Bacteria MODERATE H /HPF Urine Casts PRESENT /LPF Urine Hyaline Casts 2-5 H /LPF Urine Mucus SMALL H /LPF Urine Culture Indicated YES (HARRINGTON,NEW L DO) My Orders Orders - HARRINGTON,NEW L DO Ceftriaxone 1 Gm Pre-Mix (Rocephin 1 Gm (08/11/21 07:21) Lr 1000 Wide Open (08/11/21 08:36) (HARRINGTON,NEW L DO) Vital Signs/I&O 08/11/21 05:52 Temp 36.6 Pulse 79 Resp 18 B/P (MAP) 146/70 (95) Pulse Ox 97 O2 Delivery Room Air (HARRINGTON,NEW L DO) Progress Progress Note : Progress Note 81-year-old female with above history coming in after a fall. ABCs were intact, vitals stable on presentation. GCS 14-15 intermittently for her confusion, but she is oriented to person, place, and time. Glucose is just above 200. She has no focal neurodeficits that would make her a stroke alert at this time. We will run this as a trauma situation. We will obtain CT imaging without contrast as her most recent creatinine about a month ago was greater than 2. White blood cell count slightly elevated at 13.5 and hemoglobin slightly below her baseline at 9.4. Other labs are pending at this time. CT imaging is completed but pending at this time. We will give the patient a gentle bolus of IV fluids given she has some dry mucous membranes. I suspect this is medication related as she does take intermittent Xanax for panic attacks, and this is not helpful given her geriatric age. This is counteracted by the Adderall that she was recently started on. She also could have a UTI. Most importantly, she has no neurodeficits and is close to her baseline other than some mild confusion. Will be signing off to Dr. Harrington pending the workup. (HARVEY CARCAMO MD) Progress Note : Progress Note Patient with urinary tract infection and generalized weakness. We did call at [facility] who does not have any beds available. Talked with Dr. Reed at [facility] and they do have bed availability. She will be transferred to [facility] for further IV antibiotic inpatient treatment, PT OT and further evaluation. Patient was stable upon transfer. (NEW HARRINGTON DO) Initial ECG Impression Date: Aug 11, 2021 Initial ECG Impression Time: 05:54 Initial ECG Rate: 94 Initial ECG Rhythm: Normal Sinus Comment Narrow QRS, normal axis, there is artifact making it difficult to interpret but allowing for that no significant ST changes or T wave abnormalities. There is a PVC (HARVEY CARCAMO MD) Diagnostic Imaging Diagonstic Imaging: CT Plain Films/CT/US/NM/MRI: chest, abdomen, c-spine, head Comments CT HEAD/CERV/CHST/ABD/PELV WO INDICATION: Fall CT HEAD: Noncontrasted head CT performed with multiplanar reconstructions and is compared with exam 07/18/2021. Senescent atrophy chronic. 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 No hemorrhage or acute extra-axial fluid collection. No focal or generalized cerebral edema. No paranasal sinus air-fluid level. The calvarium nonacute. No pneumocephalus. No change. CT cervical spine: Noncontrasted cervical CT performed with multiplanar reconstructions. Cervical statures normal and alignment anatomic. Craniocervical relationship and central skull base appeared intact. Incomplete fusion of the posterior C1 ring noted as a variant. No acute or chronic fracture. There is degenerative changes to the discs, endplates, and facets throughout greatest at C5-C6 and C6-C7 where there is moderate to severe canal and bi-foraminal stenoses. No fracture or paraspinal hemorrhage. Hyoid and structures of the larynx and tracheal cartilage showed no traumatic deformity. There is atherosclerotic carotid vascular calcifications. CT CHEST: Noncontrasted chest CT performed with multiplanar reconstructions. No relevant comparison aside from remote chest x-rays. There is no pneumothorax or hemothorax. No evidence for pneumatocele. There is innumerable benign calcified granulomata as chronic findings. Some mild pulmonary opacity, partial atelectasis and nonspecific airspace disease in the caudal aspect of the lingular segment of the left upper lobe anteriorly. No identifiable rib fracture deformity. No chest wall hematoma. No focal pleural hematoma. Sternum, manubrium and diaphragm intact. There is some thickening of the central airways likely an element of bronchitis. The thoracic aorta is calcified but nonaneurysmal. There is no pericardial or mediastinal hemorrhage. There is a small hiatal hernia. Thoracic vertebral statures within normal limits aligned anatomically. No paraspinal hematoma. Abdomen and pelvis: Noncontrasted abdominal pelvic CT performed with sagittal and coronal reconstructions. I have no priors. There is no abdominal or pelvic free fluid. No findings of hemoperitoneum. No free air. No focal mesenteric or bowel wall hematoma. There is a large calculus within the gallbladder lumen. No bile duct dilatation. The unopacified liver and spleen appeared nonacute. No subcapsular collection. The stomach is mildly distended with ingested material. No perigastric edema. The adrenals are negative. There is a large staghorn type calculus casting the left renal pelvis and lower pole calyces. No resultant hydronephrosis. There is few small low-density right renal hepatic foci believed to be cysts few of these hyperdense likely hemorrhagic but their evaluation limited by the lack of contrast. There is a 2 mm punctate nonobstructing right lower pole renal calculus. There is calcified uterine fibroids. The urinary bladder is empty catheterized by Aldridge. No appreciable bladder stone. No perivesical edema. There is no appendicitis or diverticulitis. There is no small or large bowel obstruction. The pelvic osseous structures are arthritic but nonacute. There is grade 1 anterolisthesis of L5 on S1 without an appreciable spondylolysis defect. There are degenerative changes throughout the lumbar spine but no lumbar fracture apparent. IMPRESSION: CT HEAD: Stable chronic senescent changes and sequelae of old right occipital cortical infarct. No acute appearing abnormality. Cervical spine: Chronic degenerative changes and spinal stenoses but no fracture or traumatic malalignment. CT CHEST: Atelectasis or infiltrate left lung base at the inferior aspect of the lingular segment. No chest wall fracture deformity. No hemothorax or pneumothorax and no thoracic hemorrhage. Abdomen and pelvis: No hemoperitoneum. There is cholelithiasis and extensive left-sided nephrolithiasis without hydronephrosis, punctate right renal stone. Calcified uterine fibroids. No fracture or other acute/posttraumatic abnormalities. Reviewed: Reviewed by Me, Reviewed/Discussed (NEW HARRINGTON DO) Departure Impression Primary Impression: Fall Qualified Codes: W19.XXXA - Unspecified fall, initial encounter Additional Impressions: Confusion Cystitis Generalized weakness Disposition: 02 XFER SHT-TRM HOSP Condition: Stable Transfer Transfer Reason: Diversion Time Spoke to Accepting Phy: 08:35 Transfer Facility: [facility] Method of Transfer: EMS (NEW HARRINGTON DO) Departure-Patient Inst. Referrals: CYNDIE STEEN MD (PCP/Family) Primary Care Physician HARVEY CARCAMO MD Aug 11, 2021 06:14 NEW HARRINGTON DO Aug 11, 2021 07:47
[2021-08-11 06:32] LABS: HEMATOCRIT 30 % (35-52); HEMOGLOBIN 9.4 g/dL (11.5-16.0); MEAN CORPUSCULAR HEMOGLOBIN 30 pg (25-34); MEAN CORPUSCULAR HGB CONC 32 g/dL (32-36); MEAN CORPUSCULAR VOLUME 93 fL (80-99); WHITE BLOOD COUNT 13.5 10^3/uL (4.3-11.0)
[2021-08-11 06:33] LABS: BASOPHILS % (AUTO) 0 % (0-10); EOSINOPHILS % (AUTO) 0 % (0-10); LYMPHOCYTES # (AUTO) 2.4 X 10^3 (1.0-4.0); LYMPHOCYTES % (AUTO) 17 % (12-44); MEAN PLATELET VOLUME 10.5 fL (9.0-12.2); MONOCYTES # (AUTO) 1.2 X 10^3 (0.0-1.0); MONOCYTES % (AUTO) 9 % (0-12); NEUTROPHILS # (AUTO) 9.8 X 10^3 (1.8-7.8); NEUTROPHILS % (AUTO) 73 % (42-75); PLATELET COUNT 258 10^3/uL (130-400)
[2021-08-11 06:36] LABS: PROTHROMBIN TIME PATIENT 13.4 SEC (12.2-14.7)
[2021-08-11] MEDS ORDERED: NS IV 500 ML 500 ML IV STA (06:41)
[2021-08-11 06:44] LABS: BILIRUBIN,URINE NEGATIVE (NEGATIVE); CLARITY,URINE TURBID; COLOR,URINE YELLOW; GLUCOSE, URINE (UA) NEGATIVE (NEGATIVE); KETONES,URINE NEGATIVE (NEGATIVE); LEUKOCYTE ESTERASE ,URINE 2+ (NEGATIVE); NITRITE,URINE NEGATIVE (NEGATIVE); PH,URINE 5.5 (5-9); PROTEIN,URINE 1+ (NEGATIVE)
[2021-08-11] MEDS ORDERED: NS IV 500 ML 500 ML ONE (06:44)
[2021-08-11 06:48] LABS: CHLORIDE 102 MMOL/L (98-107); POTASSIUM 4.6 MMOL/L (3.6-5.0); SODIUM 140 MMOL/L (135-145)
[2021-08-11 06:49] LABS: ALANINE AMINOTRANSFERASE 16 U/L (0-55); ALBUMIN 3.5 GM/DL (3.2-4.5); ALKALINE PHOSPHATASE 82 U/L (40-136); BILIRUBIN,TOTAL 0.3 MG/DL (0.1-1.0); BUN/CREATININE RATIO 37; CALCIUM 9.6 MG/DL (8.5-10.1); CARBON DIOXIDE 21 MMOL/L (21-32); CREATININE SERUM 2.38 MG/DL (0.60-1.30); GFR ESTIMATED 20; GLUCOSE 228 MG/DL (70-105); TOTAL PROTEIN 6.8 GM/DL (6.4-8.2)
[2021-08-11 07:15] LABS: BACTERIA,URINE MODERATE /HPF; RBC,URINE 0-2 /HPF; WBC,URINE TNTC /HPF
[2021-08-11] MEDS ORDERED: cefTRIAXone 1 GM PRE-MIX 50 ML IV STA (07:21)
--- NOTE | 2021-08-11 07:25 | Diagnostic Imaging Report ---
INDICATION: Fall CT HEAD: Noncontrasted head CT performed with multiplanar reconstructions and is compared with exam 07/18/2021. Senescent atrophy chronic. 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 No hemorrhage or acute extra-axial fluid collection. No focal or generalized cerebral edema. No paranasal sinus air-fluid level. The calvarium nonacute. No pneumocephalus. No change. CT cervical spine: Noncontrasted cervical CT performed with multiplanar reconstructions. Cervical statures normal and alignment anatomic. Craniocervical relationship and central skull base appeared intact. Incomplete fusion of the posterior C1 ring noted as a variant. No acute or chronic fracture. There is degenerative changes to the discs, endplates, and facets throughout greatest at C5-C6 and C6-C7 where there is moderate to severe canal and bi-foraminal stenoses. No fracture or paraspinal hemorrhage. Hyoid and structures of the larynx and tracheal cartilage showed no traumatic deformity. There is atherosclerotic carotid vascular calcifications. CT CHEST: Noncontrasted chest CT performed with multiplanar reconstructions. No relevant comparison aside from remote chest x-rays. There is no pneumothorax or hemothorax. No evidence for pneumatocele. There is innumerable benign calcified granulomata as chronic findings. Some mild pulmonary opacity, partial atelectasis and nonspecific airspace disease in the caudal aspect of the lingular segment of the left upper lobe anteriorly. No identifiable rib fracture deformity. No chest wall hematoma. No focal pleural hematoma. Sternum, manubrium and diaphragm intact. There is some thickening of the central airways likely an element of bronchitis. The thoracic aorta is calcified but nonaneurysmal. There is no pericardial or mediastinal hemorrhage. There is a small hiatal hernia. Thoracic vertebral statures within normal limits aligned anatomically. No paraspinal hematoma. Abdomen and pelvis: Noncontrasted abdominal pelvic CT performed with sagittal and coronal reconstructions. I have no priors. There is no abdominal or pelvic free fluid. No findings of hemoperitoneum. No free air. No focal mesenteric or bowel wall hematoma. There is a large calculus within the gallbladder lumen. No bile duct dilatation. The unopacified liver and spleen appeared nonacute. No subcapsular collection. The stomach is mildly distended with ingested material. No perigastric edema. The adrenals are negative. There is a large staghorn type calculus casting the left renal pelvis and lower pole calyces. No resultant hydronephrosis. There is few small low-density right renal hepatic foci believed to be cysts few of these hyperdense likely hemorrhagic but their evaluation limited by the lack of contrast. There is a 2 mm punctate nonobstructing right lower pole renal calculus. There is calcified uterine fibroids. The urinary bladder is empty catheterized by Aldridge. No appreciable bladder stone. No perivesical edema. There is no appendicitis or diverticulitis. There is no small or large bowel obstruction. The pelvic osseous structures are arthritic but nonacute. There is grade 1 anterolisthesis of L5 on S1 without an appreciable spondylolysis defect. There are degenerative changes throughout the lumbar spine but no lumbar fracture apparent. IMPRESSION: CT HEAD: Stable chronic senescent changes and sequelae of old right occipital cortical infarct. No acute appearing abnormality. Cervical spine: Chronic degenerative changes and spinal stenoses but no fracture or traumatic malalignment. CT CHEST: Atelectasis or infiltrate left lung base at the inferior aspect of the lingular segment. No chest wall fracture deformity. No hemothorax or pneumothorax and no thoracic hemorrhage. Abdomen and pelvis: No hemoperitoneum. There is cholelithiasis and extensive left-sided nephrolithiasis without hydronephrosis, punctate right renal stone. Calcified uterine fibroids. No fracture or other acute/posttraumatic abnormalities. Dictated by: Dictated on workstation # [id number]
[2021-08-11] MEDS ORDERED: LACTATED RINGERS 1,000 ML IV STA (08:36)
[2021-08-11] MEDS ORDERED: PANTOPRAZOLE 40 MG (PROTONIX) VIAL IV STA (09:14)
[2021-08-11] MEDS ORDERED: ONDANSETRON 4 MG/2 ML (SDV) Z0FRAN IVP ONE (09:15)
== END 2021-08-11 10:00 | disposition short-term general hospital (02) ==
LOC: EDUNIT# 05:49 → ER FS 05:50
DX: R41.0 Disorientation, unspecified (principal); N30.90 Cystitis, unspecified without hematuria; R53.1 Weakness; I10 Essential (primary) hypertension; G20 Parkinson's disease; E78.00 Pure hypercholesterolemia, unspecified; F41.9 Anxiety disorder, unspecified; E11.9 Type 2 diabetes mellitus without complications; Z86.73 Personal history of transient ischemic attack (TIA), and cerebral infarction without residual deficits; Z79.01 Long term (current) use of anticoagulants; Z79.899 Other long term (current) drug therapy
CPT/HCPCS: 36415; 51702; 70450; 71250; 72125; 72192; 74150; 80053; 81000; 82947; 84484; 85025; 85610; 85730; 87077; 87088; 87186; 93005; 96374; 96375